=== PATIENT | male | born 1980 | race Two or more races ===

== ENCOUNTER 2019-05-18 12:54 | Outpatient (CLI) | payer OTHER ==
[~2019-05-18 12:54] MED LIST: CATAFLAM 50 MG PO
[2019-05-18] MEDS ORDERED: OSEL75CA PO (15:08)
[2019-05-18] MEDS ORDERED: ZITHROMAX500 MG PO (15:09)
[2019-05-18] MEDS ORDERED: TESSALON PERLE100 M1 PO (15:10)
== END 2019-05-18 12:58 | disposition home or self-care (01) ==
LOC: LAB 12:54
DX: R10.31 Right lower quadrant pain (principal); J06.9 Acute upper respiratory infection, unspecified

== ENCOUNTER → 2019-05-21 | Outpatient (CLI) | payer OTHER ==
[~2019-05-21] MED LIST changes: +OSEL75CA PO; +TESSALON PERLE100 M1 PO; +ZITHROMAX500 MG PO
== END | disposition home or self-care (01) ==
LOC: RAD 10:34
DX: R05 Cough (principal)

== ENCOUNTER → 2020-08-21 08:12 | Outpatient (CLI) | payer OTHER | END | disposition home or self-care (01) | LOC: PPH VACUNA 08:12 | DX: Z23 Encounter for immunization (principal) ==

== ENCOUNTER 2021-03-22 12:42 | Outpatient (CLI) | payer OTHER ==
[~2021-03-22 12:42] MED LIST changes: +BENZONATATE200 M1 PO; +RAYOS5 MG PO
== END 2021-03-22 12:54 | disposition home or self-care (01) ==
LOC: SONOGRAMA 12:42
PROVIDERS: ATTEND Internal Medicine
DX: R10.11 Right upper quadrant pain (principal)

== ENCOUNTER 2022-05-09 13:41 | Outpatient (CLI) | payer OTHER ==
[~2022-05-09 13:41] MED LIST changes: +AMOX-CLAV 875-1 EAC1 PO; +GLUMETZA500 MG PO; +VALTREX1000 MG PO
[2022-05-10] MEDS ORDERED: VALTREX1000 MG PO (14:46)
[2022-05-10] MEDS ORDERED: GLUMETZA500 MG PO (14:46)
== END 2022-05-09 13:43 | disposition home or self-care (01) ==
LOC: NUCLEAR 13:41
PROVIDERS: ATTEND Surgery Plastic and Reconstructive Surgery
DX: Z13.820 Encounter for screening for osteoporosis (principal)